=== PATIENT | male | born 1950 | race Caucasian/White ===

== ENCOUNTER 2019-01-13 13:37 | Inpatient (IN) | payer MEDICARE ==
[2019-01-13] VITALS (9 sets, daily range): BP systolic 95–124; BP diastolic 57–67
[~2019-01-13] VITALS: Ht 172.7 cm; Wt 70.8 kg
[2019-01-13] MEDS ORDERED: FUROSEMIDE 100MG/10ML VIAL IV STA (13:52)
[2019-01-13] MEDS ORDERED: DEXTROSE 50% WATER 50ML SYRINGE IV ONE (14:00)
[2019-01-13] MEDS ORDERED: SODIUM BICARBONATE 8.4% 1 MEQ/ML 50ML SYR IV ONE (14:00)
[2019-01-13] MEDS ORDERED: ALBUTEROL (0.083%) 2.5MG/3ML NEB HHN ONE (14:00)
[2019-01-13] MEDS ORDERED: SODIUM CHLORIDE 0.9% 1000ML BAG (SEPSIS BOLUS) IV ONE (14:00)
[2019-01-13] MEDS ORDERED: INSULIN REGULAR (HUMULIN R) 300UNITS/3ML IV ONE (14:00)
[2019-01-13] MEDS ORDERED: CALCIUM CHLORIDE 1GM/10ML SYR IV ONE (14:00)
[2019-01-13 14:26] LABS: HEMATOCRIT. 44.4 % (42.0-52.0); HEMOGLOBIN. 13.1 g/dL (14.0-18.0); MEAN CORPUSCULAR HEMOGLOBIN 32.4 pg (28.0-32.0); MEAN CORPUSCULAR VOLUME 109.4 fL (80.0-94.0); MEAN PLATELET VOLUME 9.2 fl (7.4-10.4); PLATELET 222 x1000/uL (130-400); RED BLOOD CELL COUNT 4.06 mill/uL (4.7-6.1)
[2019-01-13 14:30] LABS: CHLORIDE 90 mEq/L (98-107)
[2019-01-13 14:34] LABS: ETHANOL BLOOD < 10 mg/dL
[2019-01-13 14:39] LABS: INR 1.1; PROTHROMBIN TIME 10.9 sec (9.6-11.0)
[2019-01-13 14:45] LABS: BG BASE EXCESS -25.1 mmol/L (-2.0-2.0); BG CARBOXYHEMOGLOBIN 0.1 % (0.5-1.5); BG DEOXYHEMOGLOBIN 1.7 % (0.0-5.0); BG FRACTION INSPIRED OXYGEN 45; BG HCO3 ACT 3.5 mmol/L (22.0-26.0); BG METHEMOGLOBIN 0.1 % (0.0-1.5); BG OXYGEN SATURATION 98.3 % (92.0-98.5); BG OXYHEMOGLOBIN 98.1 % (94.0-97.0); BG PCO2 13.1 mmHg (35.0-45.0); BG PH 7.043 (7.350-7.450); BG PO2 183.2 mmHg (75.0-100.0); BG SAMPLE SITE RIGHT BRACHIAL; BG TOTAL HEMOGLOBIN 12.5 g/dL (12.0-18.0)
[2019-01-13] MEDS ORDERED: INSULIN REGULAR (DRIP) 100 UNITS in SODIUM CHLORIDE 0.9% 100 ML IV ONE ×2 (14:47→16:30)
[2019-01-13 14:52] LABS: CLARITY URINE CLOUDY (CLEAR); COLOR URINE YELLOW (YELLOW); KETONES URINE 2+ (NEGATIVE); LEUKOCYTE ESTERASE URINE NEGATIVE (NEGATIVE); NITRITE URINE NEGATIVE (NEGATIVE); OCCULT BLOOD URINE 1+ (NEGATIVE); PROTEIN URINE TRACE (NEGATIVE); SPECIFIC GRAVITY URINE 1.021 (1.005-1.030); UROBILINOGEN URINE 0.2 E.U./dL (0.2-1.0)
[2019-01-13] MEDS ORDERED: VANCOMYCIN 1 G PREMIX 200 ML IV ONE (15:00)
[2019-01-13] MEDS ORDERED: SODIUM CHLORIDE 0.9% 1,000 ML IV ONE (15:00)
[2019-01-13] MEDS ORDERED: PIPERACILLIN/TAZ 3.375G PREMIX 50 ML IV ONE (15:00)
[2019-01-13] MEDS ORDERED: INSULIN REGULAR (DRIP) 100 UNITS in SODIUM CHLORIDE 0.9% 100 ML IV SCH (15:00)
[2019-01-13 15:33] LABS: *BENZODIAZEPINES SCREEN URINE NEGATIVE (NEGATIVE); *COCAINE SCREEN URINE NEGATIVE (NEGATIVE)
[2019-01-13 15:34] LABS: *AMPHETAMINES SCREEN URINE NEGATIVE (NEGATIVE); *BARBITURATES SCREEN URINE NEGATIVE (NEGATIVE); CANNABINOID URINE SCREEN NEGATIVE (NEGATIVE); METHADONE URINE SCREEN NEGATIVE (NEGATIVE); PHENCYCLIDINE URINE SCREEN NEGATIVE (NEGATIVE)
[2019-01-13 15:43] LABS: OPIATES URINE SCREEN NEGATIVE (NEGATIVE)
[2019-01-13 16:21] LABS: PLATELET ESTIMATE NORMAL
[2019-01-13] MEDS: SODIUM CHLORIDE 0.9% 1,000 ML IV SCH ×2 (16:24→23:22)
[2019-01-13] MEDS ORDERED: ONDANSETRON HCL 4MG/2ML INJ IV PRN (16:30)
[2019-01-13] MEDS ORDERED: PIPERACILLIN/TAZ 3.375G PREMIX 50 ML IV SCH (16:30)
[2019-01-13] MEDS ORDERED: HYDRALAZINE 20MG/ML VIAL IV PRN (16:30)
[2019-01-13] MEDS ORDERED: MAGNESIUM/ALUMINUM HYDROXIDE/SIMETHICONE 30ML UDC PO PRN (16:30)
[2019-01-13] MEDS ORDERED: NA PHOS,M-B/NA PHOS,DI-BA ENEMA 118ML PR PRN (16:30)
[2019-01-13] MEDS ORDERED: HYDROMORPHONE HCL/PF 2MG/ML CPJ IV PRN (16:30)
[2019-01-13] MEDS ORDERED: CLONIDINE 0.1MG TABLET PO PRN (16:30)
[2019-01-13] MEDS ORDERED: HYDROCODONE/ACETAMINOPHEN 10/325MG TABLET PO PRN (16:30)
[2019-01-13] MEDS ORDERED: IPRATROPIUM/ALBUTEROL 0.5-3(2.5)MG/3ML NEB INH PRN (16:30)
[2019-01-13] MEDS ORDERED: DIPHENHYDRAMINE 50MG/ML VIAL IV PRN (16:30)
[2019-01-13] MEDS ORDERED: GUAIFENESIN 200MG/10ML SUGAR FREE UDC PO PRN (16:30)
[2019-01-13] MEDS ORDERED: DEXTROSE 50% WATER 50ML SYRINGE IV PRN ×3 (16:30→23:00)
[2019-01-13] MEDS: BLOOD SUGAR DIAGNOSTIC STRIP TEST SCH ×4 (16:50→23:10)
[2019-01-13 19:12] LABS: PHOSPHORUS 4.2 mg/dL (2.5-4.9)
[2019-01-13 20:40] LABS: PHOSPHORUS 3.4 mg/dL (2.5-4.9)
[2019-01-13 23:00] LABS: CREATINE KINASE MB FRACTION 12.7 ng/mL (0.5-3.6)
[2019-01-13] MEDS: INSULIN REGULAR (DRIP) 100 UNITS in SODIUM CHLORIDE 0.9% 100 ML IV SCH (23:00)
[2019-01-13] MEDS: SODIUM CHLORIDE 0.9% INJ 3ML FLUSH IVF SCH (23:23)
[2019-01-14] VITALS (29 sets, daily range): BP systolic 92–140; BP diastolic 39–85
[2019-01-14] MEDS: BLOOD SUGAR DIAGNOSTIC STRIP TEST SCH ×23 (00:09→23:04)
[2019-01-14] MEDS: SODIUM CHLORIDE 0.9% 1,000 ML IV SCH ×2 (00:09→02:16)
[2019-01-14] MEDS: PIPERACILLIN/TAZ 2.25G PREMIX 50 ML IV SCH ×5 (00:21→23:05)
[2019-01-14] MEDS ORDERED: VANCOMYCIN 1250MG in DEXTROSE 5% WATER 250ML IV SCH (04:00)
[2019-01-14] MEDS: DEXTROSE 50% WATER 50ML SYRINGE IV PRN ×3 (04:10→22:15)
[2019-01-14] MEDS: SODIUM CHLORIDE 0.9% INJ 3ML FLUSH IVF SCH ×3 (04:50→22:22)
[2019-01-14 06:01] LABS: HEMATOCRIT. 33.1 % (42.0-52.0); HEMOGLOBIN. 11.3 g/dL (14.0-18.0); MEAN CORPUSCULAR HEMOGLOBIN 32.6 pg (28.0-32.0); MEAN CORPUSCULAR VOLUME 95.6 fL (80.0-94.0); MEAN PLATELET VOLUME 8.2 fl (7.4-10.4); PLATELET 172 x1000/uL (130-400); RED BLOOD CELL COUNT 3.46 mill/uL (4.7-6.1); RED CELL DISTRIBUTION WIDTH 12.9 % (11.6-14.6)
[2019-01-14 06:07] LABS: CHLORIDE 113 mEq/L (98-107)
[2019-01-14 06:16] LABS: CREATINE KINASE MB FRACTION 16.5 ng/mL (0.5-3.6)
[2019-01-14 06:18] LABS: LDL CHOLESTEROL 104 mg/dL (5-100)
[2019-01-14 06:19] LABS: CREATINE KINASE 314 IU/L (39-308)
[2019-01-14 06:20] LABS: HDL CHOLESTEROL 52 mg/dL (40-59); T4 FREE 0.98 ng/dL (0.76-1.46)
[2019-01-14] MEDS ORDERED: DEXT 5%/0.45% NACL 1000ML 1,000 ML IV SCH (07:38)
[2019-01-14] MEDS ORDERED: POTASSIUM CHLORIDE 20MEQ TABLET SR PO NR (07:45)
[2019-01-14 07:46] LABS: PLATELET ESTIMATE NORMAL
[2019-01-14 08:08] LABS: BG BASE EXCESS -6.8 mmol/L (-2.0-2.0); BG CARBOXYHEMOGLOBIN 0.3 % (0.5-1.5); BG DEOXYHEMOGLOBIN 2.9 % (0.0-5.0); BG FRACTION INSPIRED OXYGEN 28; BG HCO3 ACT 17.3 mmol/L (22.0-26.0); BG METHEMOGLOBIN 0.3 % (0.0-1.5); BG OXYGEN SATURATION 97.1 % (92.0-98.5); BG OXYHEMOGLOBIN 96.5 % (94.0-97.0); BG PH 7.379 (7.350-7.450); BG PO2 107.3 mmHg (75.0-100.0); BG SAMPLE SITE RIGHT BRACHIAL; BG VENT MODE NASAL CANNULA
[2019-01-14] MEDS: POTASSIUM CHLORIDE INJ 30 MEQ in DEXT 5%/0.2% NACL 1,000 ML IV SCH ×2 (08:55→09:20)
[2019-01-14] MEDS ORDERED: ENOXAPARIN 40MG/0.4ML SYR SUBCUT SCH (09:00)
[2019-01-14] MEDS: ASPIRIN 81MG EC TABLET PO SCH (09:23)
[2019-01-14] MEDS: METOPROLOL TARTRATE 25MG TABLET PO SCH ×2 (09:24→20:33)
[2019-01-14] MEDS: ENOXAPARIN 80MG/0.8ML SYR SUBCUT SCH ×2 (09:26→20:34)
[2019-01-14] MEDS ORDERED: POTASSIUM CHLORIDE 20MEQ/PACKET PO NR (10:30)
[2019-01-14 14:16] LABS: CREATINE KINASE 377 IU/L (39-308)
[2019-01-14] MEDS: INSULIN REGULAR (DRIP) 100 UNITS in SODIUM CHLORIDE 0.9% 100 ML IV SCH (14:58)
[2019-01-14] MEDS ORDERED: DEXTROSE 50% WATER 50ML SYRINGE IV ONE (22:14)
[2019-01-14] MEDS: LORAZEPAM 2MG/ML CPJ IV PRN (23:51)
[2019-01-15] VITALS (40 sets, daily range): BP systolic 95–184; BP diastolic 26–102
[2019-01-15] MEDS: BLOOD SUGAR DIAGNOSTIC STRIP TEST SCH ×14 (00:15→17:37)
[2019-01-15] MEDS: VANCOMYCIN 1250MG in DEXTROSE 5% WATER 250ML IV SCH ×2 (02:10→20:16)
[2019-01-15 05:20] LABS: BASOPHILS % 0.3 % (0.0-2.0); EOSINOPHILS % 1.5 % (0.0-5.0); HEMATOCRIT. 31.9 % (42.0-52.0); HEMOGLOBIN. 10.9 g/dL (14.0-18.0); LYMPHOCYTES % 14.7 % (20.0-50.0); MEAN CORPUSCULAR HEMOGLOBIN 32.8 pg (28.0-32.0); MEAN PLATELET VOLUME 7.8 fl (7.4-10.4); NEUTROPHILS % 74.5 % (40.0-76.0); PLATELET 143 x1000/uL (130-400); RED BLOOD CELL COUNT 3.32 mill/uL (4.7-6.1); RED CELL DISTRIBUTION WIDTH 13.2 % (11.6-14.6)
[2019-01-15 05:36] LABS: PHOSPHORUS 1.7 mg/dL (2.5-4.9)
[2019-01-15] MEDS: SODIUM CHLORIDE 0.9% INJ 3ML FLUSH IVF SCH ×3 (06:05→22:53)
[2019-01-15] MEDS: PIPERACILLIN/TAZ 2.25G PREMIX 50 ML IV SCH (06:06)
[2019-01-15] MEDS: DEXTROSE 50% WATER 50ML SYRINGE IV PRN (06:26)
[2019-01-15 07:11] LABS: BG BASE EXCESS -3.3 mmol/L (-2.0-2.0); BG CARBOXYHEMOGLOBIN 0.4 % (0.5-1.5); BG HCO3 ACT 20.5 mmol/L (22.0-26.0); BG METHEMOGLOBIN 0.3 % (0.0-1.5); BG OXYHEMOGLOBIN 95.3 % (94.0-97.0); BG PCO2 32.8 mmHg (35.0-45.0); BG PH 7.414 (7.350-7.450); BG PO2 85.6 mmHg (75.0-100.0); BG SAMPLE SITE RIGHT RADIAL; BG TOTAL HEMOGLOBIN 12.1 g/dL (12.0-18.0); BG VENT MODE NASAL CANNULA
[2019-01-15] MEDS: ENOXAPARIN 80MG/0.8ML SYR SUBCUT SCH ×2 (08:08→20:16)
[2019-01-15] MEDS: METOPROLOL TARTRATE 25MG TABLET PO SCH (08:09)
[2019-01-15] MEDS: ASPIRIN 81MG EC TABLET PO SCH (08:09)
[2019-01-15] MEDS: INSULIN LISPRO 100 UNITS/ML SUBCUT SCH ×3 (08:20→17:41)
[2019-01-15] MEDS ORDERED: POTASSIUM PHOS,M-BASIC-D-BASIC 15 MMOL in DEXT 5% WATER 245 ML IV SCH (09:00)
[2019-01-15] MEDS: POTASSIUM CHLORIDE INJ 30 MEQ in DEXT 5%/0.2% NACL 1,000 ML IV SCH ×2 (09:46→23:10)
[2019-01-15] MEDS: INSULIN GLARGINE UD 100 UNITS/ML SYR SUBCUT SCH (09:46)
[2019-01-15] MEDS ORDERED: BLOOD SUGAR DIAGNOSTIC STRIP TEST SCH (12:50)
[2019-01-15] MEDS: PIPERACILLIN/TAZ 3.375G PREMIX 50 ML IV SCH ×2 (14:21→21:58)
[2019-01-15] MEDS ORDERED: ENOXAPARIN 80MG/0.8ML SYR SUBCUT SCH (15:00)
[2019-01-15] MEDS ORDERED: THIAMINE HCL 100 MG in SODIUM CHLORIDE 0.9% 49 ML IV SCH (15:00)
[2019-01-15] MEDS: LORAZEPAM 2MG/ML CPJ IV PRN (20:16)
[2019-01-16] VITALS (32 sets, daily range): BP systolic 95–180; BP diastolic 59–107
[2019-01-16] MEDS: BLOOD SUGAR DIAGNOSTIC STRIP TEST SCH ×5 (00:26→20:46)
[2019-01-16] MEDS: LORAZEPAM 2MG/ML CPJ IV PRN (02:10)
[2019-01-16 04:44] LABS: BASOPHILS % 0.7 % (0.0-2.0); EOSINOPHILS % 4.4 % (0.0-5.0); HEMATOCRIT. 35.9 % (42.0-52.0); HEMOGLOBIN. 12.1 g/dL (14.0-18.0); LYMPHOCYTES % 23.4 % (20.0-50.0); MEAN CORPUSCULAR HEMOGLOBIN 32.3 pg (28.0-32.0); MEAN CORPUSCULAR VOLUME 95.9 fL (80.0-94.0); MEAN PLATELET VOLUME 8.1 fl (7.4-10.4); MONOCYTES % 9.8 % (2.0-8.0); NEUTROPHILS % 61.7 % (40.0-76.0); PLATELET 151 x1000/uL (130-400); RED BLOOD CELL COUNT 3.74 mill/uL (4.7-6.1); RED CELL DISTRIBUTION WIDTH 13.4 % (11.6-14.6)
[2019-01-16 04:54] LABS: CHLORIDE 110 mEq/L (98-107)
[2019-01-16] MEDS: PIPERACILLIN/TAZ 3.375G PREMIX 50 ML IV SCH ×3 (05:32→21:30)
[2019-01-16] MEDS: SODIUM CHLORIDE 0.9% INJ 3ML FLUSH IVF SCH ×3 (05:32→21:31)
[2019-01-16] MEDS: INSULIN LISPRO 100 UNITS/ML SUBCUT SCH ×5 (06:00→20:46)
[2019-01-16] MEDS: ASPIRIN 81MG EC TABLET PO SCH (09:12)
[2019-01-16] MEDS: ENOXAPARIN 80MG/0.8ML SYR SUBCUT SCH ×2 (09:12→20:46)
[2019-01-16] MEDS: INSULIN GLARGINE UD 100 UNITS/ML SYR SUBCUT SCH (09:16)
[2019-01-16] MEDS: VANCOMYCIN 1 G PREMIX 200 ML IV SCH ×2 (11:47→20:46)
[2019-01-16] MEDS: THIAMINE HCL 100 MG in SODIUM CHLORIDE 0.9% 49 ML IV SCH (14:58)
[2019-01-16] MEDS: DEXTROSE 50% WATER 50ML SYRINGE IV PRN (18:10)
[2019-01-17] VITALS (26 sets, daily range): BP systolic 83–150; BP diastolic 50–93
[2019-01-17 05:40] LABS: CHLORIDE 107 mEq/L (98-107)
[2019-01-17] MEDS: SODIUM CHLORIDE 0.9% INJ 3ML FLUSH IVF SCH ×3 (05:47→22:02)
[2019-01-17] MEDS: PIPERACILLIN/TAZ 3.375G PREMIX 50 ML IV SCH ×2 (05:47→13:07)
[2019-01-17 05:49] LABS: PHOSPHORUS 2.5 mg/dL (2.5-4.9)
[2019-01-17] MEDS: DEXTROSE 50% WATER 50ML SYRINGE IV PRN (06:29)
[2019-01-17 07:23] LABS: BASOPHILS % 0.6 % (0.0-2.0); EOSINOPHILS % 3.1 % (0.0-5.0); HEMATOCRIT. 38.9 % (42.0-52.0); HEMOGLOBIN. 13.3 g/dL (14.0-18.0); LYMPHOCYTES % 17.2 % (20.0-50.0); MEAN CORPUSCULAR HEMOGLOBIN 32.6 pg (28.0-32.0); MEAN CORPUSCULAR VOLUME 95.2 fL (80.0-94.0); MEAN PLATELET VOLUME 8.4 fl (7.4-10.4); MONOCYTES % 9.9 % (2.0-8.0); NEUTROPHILS % 69.2 % (40.0-76.0); PLATELET 158 x1000/uL (130-400); RED BLOOD CELL COUNT 4.08 mill/uL (4.7-6.1); RED CELL DISTRIBUTION WIDTH 13.3 % (11.6-14.6)
[2019-01-17] MEDS: BLOOD SUGAR DIAGNOSTIC STRIP TEST SCH ×4 (07:36→21:05)
[2019-01-17] MEDS: INSULIN LISPRO 100 UNITS/ML SUBCUT SCH ×4 (07:36→21:16)
[2019-01-17] MEDS: VANCOMYCIN 1 G PREMIX 200 ML IV SCH ×2 (08:02→23:36)
[2019-01-17] MEDS: ENOXAPARIN 80MG/0.8ML SYR SUBCUT SCH ×2 (08:02→21:18)
[2019-01-17] MEDS: ASPIRIN 81MG EC TABLET PO SCH (08:02)
[2019-01-17] MEDS: INSULIN GLARGINE UD 100 UNITS/ML SYR SUBCUT SCH (10:00)
[2019-01-17] MEDS: FUROSEMIDE 40MG/4ML VIAL IVP SCH (10:06)
[2019-01-17] MEDS: POTASSIUM CHLORIDE 20MEQ TABLET SR PO SCH (10:06)
[2019-01-17] MEDS ORDERED: CLOPIDOGREL 75MG TABLET PO ONE (11:00)
[2019-01-17] MEDS: THIAMINE HCL 100 MG in SODIUM CHLORIDE 0.9% 49 ML IV SCH (14:15)
[2019-01-17] MEDS ORDERED: THIAMINE HCL 100 MG in SODIUM CHLORIDE 0.9% 49 ML IV ONE (15:00)
[2019-01-17] MEDS: PIPERACILLIN/TAZOBACTAM 3.375 G in DEXT 5% WATER 100 ML IV SCH (22:01)
[2019-01-18] VITALS (12 sets, daily range): BP systolic 98–148; BP diastolic 56–90
[2019-01-18] MEDS: PIPERACILLIN/TAZOBACTAM 3.375 G in DEXT 5% WATER 100 ML IV SCH ×4 (03:40→21:04)
[2019-01-18] MEDS: DEXTROSE 50% WATER 50ML SYRINGE IV PRN (04:28)
[2019-01-18] MEDS: SODIUM CHLORIDE 0.9% INJ 3ML FLUSH IVF SCH ×3 (06:25→21:24)
[2019-01-18 06:40] LABS: BASOPHILS % 0.6 % (0.0-2.0); EOSINOPHILS % 4.8 % (0.0-5.0); HEMATOCRIT. 36.4 % (42.0-52.0); HEMOGLOBIN. 12.6 g/dL (14.0-18.0); LYMPHOCYTES % 20.2 % (20.0-50.0); MEAN CORPUSCULAR VOLUME 95.5 fL (80.0-94.0); MEAN PLATELET VOLUME 8.7 fl (7.4-10.4); MONOCYTES % 8.8 % (2.0-8.0); NEUTROPHILS % 65.6 % (40.0-76.0); PLATELET 150 x1000/uL (130-400); RED BLOOD CELL COUNT 3.81 mill/uL (4.7-6.1); RED CELL DISTRIBUTION WIDTH 13.1 % (11.6-14.6)
[2019-01-18] MEDS: INSULIN LISPRO 100 UNITS/ML SUBCUT SCH ×5 (06:50→21:00)
[2019-01-18 06:54] LABS: CHLORIDE 104 mEq/L (98-107)
[2019-01-18] MEDS: BLOOD SUGAR DIAGNOSTIC STRIP TEST SCH ×4 (07:05→21:13)
[2019-01-18] MEDS: ASPIRIN 81MG EC TABLET PO SCH ×3 (08:17→10:12)
[2019-01-18] MEDS: VANCOMYCIN 1 G PREMIX 200 ML IV SCH (08:17)
[2019-01-18] MEDS: DOCUSATE SODIUM 100MG CAPSULE PO PRN (08:17)
[2019-01-18] MEDS: POTASSIUM CHLORIDE 20MEQ TABLET SR PO SCH (08:17)
[2019-01-18] MEDS: CLOPIDOGREL 75MG TABLET PO SCH ×3 (08:17→10:12)
[2019-01-18] MEDS: FUROSEMIDE 40MG/4ML VIAL IVP SCH (08:17)
[2019-01-18] MEDS: ENOXAPARIN 80MG/0.8ML SYR SUBCUT SCH ×2 (08:21→21:32)
[2019-01-18] MEDS: ACETAMINOPHEN 325MG TABLET PO PRN (10:23)
[2019-01-18] MEDS ORDERED: INSULIN GLARGINE UD 100 UNITS/ML SYR SUBCUT SCH (12:15)
[2019-01-18] MEDS ORDERED: BISACODYL 10MG SUPP PR PRN (18:15)
[2019-01-18] MEDS ORDERED: BISACODYL 10MG SUPP PR NR (18:15)
[2019-01-18] MEDS ORDERED: SORBITOL 70% SOLN 30ML PO NR (18:15)
[2019-01-18] MEDS ORDERED: VANCOMYCIN 750 MG PREMIX 150 ML IV SCH (21:00)
[2019-01-18] MEDS ORDERED: ATORVASTATIN CALCIUM 10MG TABLET PO SCH (21:00)
[2019-01-18] MEDS: ATORVASTATIN CALCIUM 20MG TABLET PO SCH (21:05)
[2019-01-19] VITALS (16 sets, daily range): BP systolic 95–148; BP diastolic 60–98
[2019-01-19] MEDS: DEXTROSE 50% WATER 50ML SYRINGE IV PRN (05:57)
[2019-01-19] MEDS: BLOOD SUGAR DIAGNOSTIC STRIP TEST SCH ×4 (05:57→21:21)
[2019-01-19] MEDS: SODIUM CHLORIDE 0.9% INJ 3ML FLUSH IVF SCH ×3 (05:57→21:21)
[2019-01-19 07:06] LABS: BASOPHILS % 0.4 % (0.0-2.0); EOSINOPHILS % 2.4 % (0.0-5.0); HEMOGLOBIN. 12.8 g/dL (14.0-18.0); LYMPHOCYTES % 9.2 % (20.0-50.0); MEAN CORPUSCULAR VOLUME 95.2 fL (80.0-94.0); MEAN PLATELET VOLUME 8.8 fl (7.4-10.4); MONOCYTES % 6.1 % (2.0-8.0); NEUTROPHILS % 81.9 % (40.0-76.0); PLATELET 178 x1000/uL (130-400); RED BLOOD CELL COUNT 3.89 mill/uL (4.7-6.1); RED CELL DISTRIBUTION WIDTH 13.1 % (11.6-14.6)
[2019-01-19 07:12] LABS: CHLORIDE 102 mEq/L (98-107)
[2019-01-19] MEDS: INSULIN LISPRO 100 UNITS/ML SUBCUT SCH ×5 (07:20→21:00)
[2019-01-19] MEDS ORDERED: LACTULOSE 20G/30ML UDC PO NR (08:30)
[2019-01-19] MEDS: DOCUSATE SODIUM SUGAR FREE 100MG/10ML UDC NG SCH (09:00)
[2019-01-19] MEDS: FUROSEMIDE 40MG/4ML VIAL IVP SCH (10:46)
[2019-01-19] MEDS: POTASSIUM CHLORIDE 20MEQ TABLET SR PO SCH (10:47)
[2019-01-19] MEDS: ENOXAPARIN 80MG/0.8ML SYR SUBCUT SCH (10:49)
[2019-01-19] MEDS: ASPIRIN 81MG EC TABLET PO SCH ×2 (10:50→11:03)
[2019-01-19] MEDS: CLOPIDOGREL 75MG TABLET PO SCH (10:50)
[2019-01-19] MEDS: ACETAMINOPHEN 325MG TABLET PO PRN (11:10)
[2019-01-19] MEDS: INSULIN GLARGINE UD 100 UNITS/ML SYR SUBCUT SCH (12:15)
[2019-01-19] MEDS ORDERED: POTASSIUM CHLORIDE 20MEQ/PACKET PO SCH (12:45)
[2019-01-19] MEDS ORDERED: CLONIDINE 0.1MG TABLET PO PRN (19:00)
[2019-01-19] MEDS: ATORVASTATIN CALCIUM 20MG TABLET PO SCH (21:00)
[2019-01-20] VITALS (14 sets, daily range): BP systolic 110–166; BP diastolic 68–98
[2019-01-20] MEDS: BLOOD SUGAR DIAGNOSTIC STRIP TEST SCH ×4 (06:14→21:46)
[2019-01-20] MEDS: SODIUM CHLORIDE 0.9% INJ 3ML FLUSH IVF SCH ×3 (06:15→21:56)
[2019-01-20 06:39] LABS: BASOPHILS % 0.6 % (0.0-2.0); EOSINOPHILS % 4.9 % (0.0-5.0); HEMOGLOBIN. 12.9 g/dL (14.0-18.0); LYMPHOCYTES % 14.4 % (20.0-50.0); MEAN CORPUSCULAR HEMOGLOBIN 32.6 pg (28.0-32.0); MEAN CORPUSCULAR VOLUME 96.3 fL (80.0-94.0); MONOCYTES % 8.8 % (2.0-8.0); NEUTROPHILS % 71.3 % (40.0-76.0); PLATELET 209 x1000/uL (130-400); RED BLOOD CELL COUNT 3.94 mill/uL (4.7-6.1); RED CELL DISTRIBUTION WIDTH 13.1 % (11.6-14.6)
[2019-01-20 06:44] LABS: CHLORIDE 102 mEq/L (98-107)
[2019-01-20] MEDS: INSULIN LISPRO 100 UNITS/ML SUBCUT SCH ×4 (07:20→21:55)
[2019-01-20] MEDS: ASPIRIN 81MG EC TABLET PO SCH (08:43)
[2019-01-20] MEDS: CLOPIDOGREL 75MG TABLET PO SCH (08:43)
[2019-01-20] MEDS: DOCUSATE SODIUM 100MG CAPSULE PO PRN (08:43)
[2019-01-20] MEDS: FUROSEMIDE 40MG TABLET PO SCH (08:43)
[2019-01-20] MEDS: POTASSIUM CHLORIDE 20MEQ TABLET SR PO SCH (08:43)
[2019-01-20] MEDS: ENOXAPARIN 60MG/0.6ML SYR SUBCUT SCH (08:44)
[2019-01-20] MEDS: INSULIN GLARGINE UD 100 UNITS/ML SYR SUBCUT SCH ×2 (08:44→10:00)
[2019-01-20] MEDS: DOCUSATE SODIUM SUGAR FREE 100MG/10ML UDC NG SCH (09:00)
[2019-01-20] MEDS ORDERED: INSULIN LISPRO 100 UNITS/ML SUBCUT NR (17:00)
[2019-01-20] MEDS: ACETAMINOPHEN 325MG TABLET PO PRN (18:44)
[2019-01-20] MEDS: ATORVASTATIN CALCIUM 20MG TABLET PO SCH (21:00)
[2019-01-20] MEDS: HYDROCODONE/ACETAMINOPHEN 5/325MG TABLET PO PRN (23:10)
[2019-01-21] VITALS (10 sets, daily range): BP systolic 106–140; BP diastolic 55–93
[2019-01-21 05:59] LABS: CHLORIDE 104 mEq/L (98-107)
[2019-01-21] MEDS: BLOOD SUGAR DIAGNOSTIC STRIP TEST SCH ×4 (06:11→21:00)
[2019-01-21] MEDS: DEXTROSE 50% WATER 50ML SYRINGE IV PRN (06:14)
[2019-01-21] MEDS: SODIUM CHLORIDE 0.9% INJ 3ML FLUSH IVF SCH ×2 (06:15→14:33)
[2019-01-21 06:23] LABS: BASOPHILS % 0.7 % (0.0-2.0); HEMATOCRIT. 36.5 % (42.0-52.0); HEMOGLOBIN. 12.5 g/dL (14.0-18.0); LYMPHOCYTES % 17.2 % (20.0-50.0); MEAN CORPUSCULAR HEMOGLOBIN 32.7 pg (28.0-32.0); MEAN CORPUSCULAR VOLUME 95.5 fL (80.0-94.0); MEAN PLATELET VOLUME 8.8 fl (7.4-10.4); MONOCYTES % 11.8 % (2.0-8.0); NEUTROPHILS % 66.3 % (40.0-76.0); PLATELET 217 x1000/uL (130-400); RED BLOOD CELL COUNT 3.82 mill/uL (4.7-6.1); RED CELL DISTRIBUTION WIDTH 13.1 % (11.6-14.6)
[2019-01-21] MEDS: INSULIN LISPRO 100 UNITS/ML SUBCUT SCH ×4 (07:20→23:08)
[2019-01-21] MEDS: CLOPIDOGREL 75MG TABLET PO SCH (08:48)
[2019-01-21] MEDS: POTASSIUM CHLORIDE 20MEQ TABLET SR PO SCH (08:48)
[2019-01-21] MEDS: DOCUSATE SODIUM 100MG CAPSULE PO PRN (08:48)
[2019-01-21] MEDS: ASPIRIN 81MG EC TABLET PO SCH (08:48)
[2019-01-21] MEDS: FUROSEMIDE 40MG TABLET PO SCH (08:49)
[2019-01-21] MEDS: ENOXAPARIN 60MG/0.6ML SYR SUBCUT SCH (08:51)
[2019-01-21] MEDS: DOCUSATE SODIUM SUGAR FREE 100MG/10ML UDC NG SCH (08:54)
[2019-01-21] MEDS: INSULIN GLARGINE UD 100 UNITS/ML SYR SUBCUT SCH (09:32)
[2019-01-21] MEDS: NYSTATIN POWDER 15GM TOP SCH (21:00)
[2019-01-21] MEDS: ATORVASTATIN CALCIUM 20MG TABLET PO SCH (22:04)
[2019-01-22] VITALS (12 sets, daily range): BP systolic 102–144; BP diastolic 62–98
[2019-01-22] MEDS: SODIUM CHLORIDE 0.9% INJ 3ML FLUSH IVF SCH ×4 (01:30→22:12)
[2019-01-22 06:29] LABS: HEMATOCRIT. 35.8 % (42.0-52.0); HEMOGLOBIN. 12.2 g/dL (14.0-18.0); MEAN CORPUSCULAR HEMOGLOBIN 32.5 pg (28.0-32.0); MEAN CORPUSCULAR VOLUME 95.2 fL (80.0-94.0); MEAN PLATELET VOLUME 8.7 fl (7.4-10.4); PLATELET 221 x1000/uL (130-400); RED BLOOD CELL COUNT 3.76 mill/uL (4.7-6.1); RED CELL DISTRIBUTION WIDTH 13.4 % (11.6-14.6)
[2019-01-22 06:36] LABS: CHLORIDE 105 mEq/L (98-107)
[2019-01-22] MEDS: INSULIN LISPRO 100 UNITS/ML SUBCUT SCH ×4 (07:20→21:23)
[2019-01-22] MEDS: BLOOD SUGAR DIAGNOSTIC STRIP TEST SCH ×4 (07:37→20:57)
[2019-01-22] MEDS: DEXTROSE 50% WATER 50ML SYRINGE IV PRN (07:43)
[2019-01-22] MEDS: DOCUSATE SODIUM SUGAR FREE 100MG/10ML UDC NG SCH (09:00)
[2019-01-22] MEDS: FUROSEMIDE 40MG TABLET PO SCH (09:34)
[2019-01-22] MEDS: ASPIRIN 81MG EC TABLET PO SCH (09:34)
[2019-01-22] MEDS: CLOPIDOGREL 75MG TABLET PO SCH (09:34)
[2019-01-22] MEDS: ENOXAPARIN 60MG/0.6ML SYR SUBCUT SCH (09:34)
[2019-01-22] MEDS: POTASSIUM CHLORIDE 20MEQ TABLET SR PO SCH (09:34)
[2019-01-22] MEDS: NYSTATIN POWDER 15GM TOP SCH ×2 (09:35→16:01)
[2019-01-22 09:41] LABS: PLATELET ESTIMATE NORMAL
[2019-01-22] MEDS: INSULIN GLARGINE UD 100 UNITS/ML SYR SUBCUT SCH (09:58)
[2019-01-22] MEDS: HYDROCODONE/ACETAMINOPHEN 5/325MG TABLET PO PRN (20:23)
[2019-01-22] MEDS: ATORVASTATIN CALCIUM 20MG TABLET PO SCH (20:24)
[2019-01-23] VITALS (11 sets, daily range): BP systolic 105–138; BP diastolic 61–82
[2019-01-23] MEDS: SODIUM CHLORIDE 0.9% INJ 3ML FLUSH IVF SCH ×2 (05:33→13:00)
[2019-01-23] MEDS: BLOOD SUGAR DIAGNOSTIC STRIP TEST SCH ×3 (06:07→17:29)
[2019-01-23] MEDS: ENOXAPARIN 60MG/0.6ML SYR SUBCUT SCH (08:24)
[2019-01-23] MEDS: CLOPIDOGREL 75MG TABLET PO SCH (08:24)
[2019-01-23] MEDS: DOCUSATE SODIUM SUGAR FREE 100MG/10ML UDC NG SCH (08:24)
[2019-01-23] MEDS: POTASSIUM CHLORIDE 20MEQ TABLET SR PO SCH (08:24)
[2019-01-23] MEDS: INSULIN LISPRO 100 UNITS/ML SUBCUT SCH ×3 (08:25→17:29)
[2019-01-23] MEDS: NYSTATIN POWDER 15GM TOP SCH ×2 (08:25→17:29)
[2019-01-23] MEDS: ASPIRIN 81MG EC TABLET PO SCH (08:25)
[2019-01-23] MEDS: FUROSEMIDE 40MG TABLET PO SCH (08:25)
[2019-01-23] MEDS: INSULIN GLARGINE UD 100 UNITS/ML SYR SUBCUT SCH (10:44)
== END 2019-01-23 20:05 | DRG 871 ==
LOC: EDBEDREQSVC 14:55 → ER 15:10 → EDBEDREQTM 15:23 → EDBEDREQ 15:23 → ENRESERV 21:23 → CVICU 22:46 → 3WST 01-17 15:59
PROVIDERS: ADMIT Internal Medicine; ATTEND Internal Medicine
DX: A41.9 Sepsis, unspecified organism (principal); E11.10 Type 2 diabetes mellitus with ketoacidosis without coma; G92 Toxic encephalopathy; I21.4 Non-ST elevation (NSTEMI) myocardial infarction; N17.0 Acute kidney failure with tubular necrosis; I63.9 Cerebral infarction, unspecified; E87.0 Hyperosmolality and hypernatremia; N39.0 Urinary tract infection, site not specified; J44.0 Chronic obstructive pulmonary disease with (acute) lower respiratory infection; I45.10 Unspecified right bundle-branch block; I35.0 Nonrheumatic aortic (valve) stenosis; E86.9 Volume depletion, unspecified; E11.9 Type 2 diabetes mellitus without complications; J44.9 Chronic obstructive pulmonary disease, unspecified; E87.5 Hyperkalemia; E87.6 Hypokalemia; E11.649 Type 2 diabetes mellitus with hypoglycemia without coma; Z79.4 Long term (current) use of insulin; Z78.1 Physical restraint status
CPT/HCPCS: 36415; 36600; 70551; 71045; 74018; 76770; 80048; 80061; 80202; 80305; 80320; 82375; 82550; 82553; 82805; 82962; 83605; 83735; 83880; 84100; 84145; 84439; 84443; 84484; 92610; 93005; 93306; 93880; 93970; 93971; 94640; 96365; 96375; 97116; 97162; 97167; 97530; 97535; 99291; A6261; J1650; J1815; J1940; J2060; J2543; J3370; J3411; J3480; J3490; J7030; J7050; J7060; J7611; G0480